=== PATIENT | female | born 1995 | race Caucasian/White ===

== ENCOUNTER 2018-03-28 13:16 | Emergency (ER) | payer BC, OTHER ==
--- NOTE | 2018-03-28 13:36 | EDM.PDOC ---
ED HPI GENERAL MEDICAL PROBLEM - General Chief Complaint: Lower Extremity Injury/Pain Stated Complaint: LEFT ANKLE PAIN Time Seen by Provider: 03/28/18 13:36 Source of Information: Reports: Patient History Limitations: Reports: No Limitations - History of Present Illness INITIAL COMMENTS - FREE TEXT/NARRATIVE: History of present illness: []Patient works for [employer] and was exiting her truck when she rolled her left ankle on an uneven surface. She fell down has abrasion to her right knee and pain and swelling over the lateral part of her ankle. Review of systems: As per history of present illness and below otherwise all systems reviewed and negative. Past medical history: As per history of present illness and as reviewed below otherwise noncontributory. Surgical history: As per history of present illness and as reviewed below otherwise noncontributory. Social history: No reported history of drug or alcohol abuse. Family history: As per history of present illness and as reviewed below otherwise noncontributory. Physical exam: General: Well developed, well nourished in NAD HEENT: Atraumatic, normocephalic, pupils reactive, negative for conjunctival pallor or scleral icterus, mucous membranes moist, throat clear, neck supple, nontender, trachea midline. Lungs: Clear to auscultation, breath sounds equal bilaterally, chest nontender. Heart: S1S2, regular, negative for clicks, rubs, or JVD. Abdomen: Soft, nondistended, nontender. Negative for masses or hepatosplenomegaly. Negative for costovertebral tenderness. Pelvis: Stable nontender. Genitourinary: Deferred. Rectal: Deferred. Extremities: Right knee with superficial abrasion no effusion noted, full range of motion, left ankle with swelling and tenderness over lateral malleolus is to pulses palpable moves toes sensation intact. negative for cords or calf pain. Neurovascular unremarkable. Neuro: Awake, alert, oriented. Cranial nerves II through XII unremarkable. Cerebellum unremarkable. Motor and sensory unremarkable throughout. Exam nonfocal. Diagnostics: []X-ray left ankle negative for fracture or dislocation Therapeutics: []Tetanus status updated, ibuprofen for pain, ice Impression: []Left ankle sprain Plan: []Ice, elevate, splint for support follow-up with PMD as needed Definitive disposition and diagnosis as appropriate pending reevaluation and review of above. Left Ankle Pain Score (Numeric/FACES): 8 - Related Data Allergies Allergy/AdvReac Type Severity Reaction Status Date / Time No Known Allergies Allergy Verified 03/28/18 13:26 Home Meds: Home Meds . [No Known Home Meds] 03/28/18 [History] Past Medical History - Past Health History Medical/Surgical History: Denies Medical/Surgical History Social & Family History - Family History Family Medical History: Noncontributory - Tobacco Use Smoking Status *Q: Never Smoker Second Hand Smoke Exposure: No - Caffeine Use Caffeine Use: Reports: Soda - Recreational Drug Use Recreational Drug Use: No Review of Systems - Review of Systems Review Of Systems: ROS reveals no pertinent complaints other than HPI. ED EXAM, GENERAL - Physical Exam Exam: See Below (History of present illness) Course - Vital Signs Last Recorded V/S: Last Vital Signs Temp 98.4 F 03/28/18 13:26 Pulse 88 03/28/18 13:26 Resp 15 03/28/18 13:26 BP 138/88 03/28/18 13:26 Pulse Ox 97 03/28/18 13:26 - Orders/Labs/Meds Orders: Active Orders 24 hr Category Date Time Status Splinting [RC] ASDIRECTED Care 03/28/18 14:08 Ordered Meds: Medications Discontinued Medications Generic Name Dose Route Start Last Admin Trade Name Gil PRN Reason Stop Dose Admin Ibuprofen 600 mg 03/28/18 13:40 03/28/18 13:47 Motrin PO 03/28/18 13:41 600 mg ONETIME ONE Administration Departure - Departure Time of Disposition: 14:09 Disposition: Home, Self-Care 01 Condition: Good Clinical Impression: Left ankle sprain Qualifiers: Encounter type: initial encounter Involved ligament of ankle: unspecified ligament Qualified Code(s): S93.402A - Sprain of unspecified ligament of left ankle, initial encounter - Discharge Information *COPY OF PRESCRIPTION DRUG MONITORING REPORT IN PATIENT MELVIN: Not Applicable Instructions: How to Use a Stirrup Ankle Brace, How to Use a Stirrup Ankle Brace, [id number], Ankle Sprain, [id number] Referrals: PCP,None [Primary Care Provider] - Forms: ED Department Discharge Additional Instructions: The following information is given to patients seen in the emergency department who are being discharged to home. This information is to outline your options for follow-up care. We provide all patients seen in our emergency department with a follow-up referral. The need for follow-up, as well as the timing and circumstances, are variable depending upon the specifics of your emergency department visit. If you don't have a primary care physician on staff, we will provide you with a referral. We always advise you to contact your personal physician following an emergency department visit to inform them of the circumstance of the visit and for follow-up with them and/or the need for any referrals to a consulting specialist. The emergency department will also refer you to a specialist when appropriate. This referral assures that you have the opportunity for follow-up care with a specialist. All of these measure are taken in an effort to provide you with optimal care, which includes your follow-up. Under all circumstances we always encourage you to contact your private physician who remains a resource for coordinating your care. When calling for follow-up care, please make the office aware that this follow-up is from your recent emergency room visit. If for any reason you are refused follow-up, please contact the [facility] Emergency Department at and asked to speak to the emergency department charge nurse. Ice, elevate, Motrin for pain use splint for comfort follow-up with primary care as needed [facility] [address] [place] [id number] - My Orders Last 24 Hours: My Active Orders 03/28/18 14:08 Splinting [RC] ASDIRECTED - Assessment/Plan Last 24 Hours: My Active Orders 03/28/18 14:08 Splinting [RC] ASDIRECTED
[2018-03-28] MEDS ORDERED: Ibuprofen 600 MG Tab PO ONE (13:40)
--- NOTE | 2018-03-28 14:05 | CR ---
EXAMINATION: Left ankle HISTORY: Pain COMPARISON: None TECHNIQUE: 3 views FINDINGS/IMPRESSION: There is no acute osseous abnormality, dislocation, or fracture. Ankle mortise a nd talar dome appear intact. Moderate soft tissue swelling overlying the lateral malleolus.
== END 2018-03-28 14:32 | disposition home or self-care (01) ==
LOC: MW.ED 13:16
DX: S93.402A Sprain of unspecified ligament of left ankle, initial encounter (principal); S80.211A Abrasion, right knee, initial encounter; W17.89XA Other fall from one level to another, initial encounter; Y99.0 Civilian activity done for income or pay
CPT/HCPCS: 73610; 99283; A9270